=== PATIENT | male | born 1995 | race American Indian/Alaskan Native ===

== ENCOUNTER 2016-09-04 00:21 | Emergency (ER) | payer MEDICAID ==
[2016-09-04 00:29] VITALS: BP 116/67; PULSE 86; RESP 20; TEMP 100.4; O2SAT 96
--- NOTE | 2016-09-04 01:17 | C.PDOC ---
History Of Present Illness 21 year old male who presents to the ER with a complaint of fever and sore throat since yesterday, associated with vomiting that began today. Denies diarrhea, abdominal pain, or recent travel. Time Seen by Provider: 09/04/16 00:48 Chief Complaint (Nursing): Fever History Per: Patient History/Exam Limitations: no limitations Onset/Duration Of Symptoms: Days Current Symptoms Are (Timing): Still Present Location Of Pain: Throat Sick Contacts (Context): None Associated Symptoms: Fever, Sore Throat, Vomiting. denies: Diarrhea Ear Symptoms: Bilateral: None Recent travel outside of the [place]: No Past Medical History Reviewed: Historical Data, Nursing Documentation, Vital Signs Vital Signs: Last Vital Signs Temp 100.4 F H 09/04/16 00:26 Pulse 86 09/04/16 00:26 Resp 20 09/04/16 00:26 BP 116/67 09/04/16 00:26 Pulse Ox 96 09/04/16 02:01 - Medical History PMH: No Chronic Diseases Surgical History: No Surg Hx Family History: States: Unknown Family Hx - Social History Hx Alcohol Use: No Hx Substance Use: No - Immunization History Hx Tetanus Toxoid Vaccination: No Hx Influenza Vaccination: Yes Hx Pneumococcal Vaccination: No Review Of Systems Constitutional: Positive for: Fever ENT: Positive for: Throat Pain Gastrointestinal: Positive for: Vomiting. Negative for: Abdominal Pain, Diarrhea Physical Exam - Physical Exam Appears: Non-toxic Skin: Normal Color, Warm, Dry Head: Atraumatic, Normacephalic Eye(s): bilateral: Normal Inspection, PERRL, EOMI Ear(s): Bilateral: Normal Oral Mucosa: Moist Throat: Erythema (+), Exudate (+) Neck: Normal, Supple Chest: Symmetrical, No Tenderness Cardiovascular: Rhythm Regular, No Murmur Respiratory: Normal Breath Sounds, No Rales, No Rhonchi, No Wheezing Gastrointestinal/Abdominal: Soft, No Tenderness, No Organomegaly, No Guarding, No Rebound Extremity: Normal ROM Neurological/Psych: Oriented x3, Normal Speech, Normal Cognition, Normal Motor Gait: Steady ED Course And Treatment O2 Sat by Pulse Oximetry: 96 (Room air) Pulse Ox Interpretation: Normal Medical Decision Making Medical Decision Making: Plan: * Amoxicillin * Motrin On reevaluation, patient feels his symptoms have improved. Will discharge with Rx and instructions to follow up with PMD. Disposition - Disposition Referrals: [facility] [Outside] Disposition: HOME/ ROUTINE Disposition Time: 01:14 Condition: GOOD Additional Instructions: Follow up with the medical doctor within 1-2 days. Return if worsened. Prescriptions: Amoxicillin 500 mg PO BID #14 tablet Ibuprofen [Motrin] 600 mg PO TID #21 tab Instructions: Pharyngitis (ED) Forms: [employer] ([place]) - Clinical Impression Clinical Impression: Pharyngitis - Scribe Statement The provider has reviewed the documentation as recorded by the Scribeduarda Taylor All medical record entries made by the Marycarmenibeduarda were at my direction and personally dictated by me. I have reviewed the chart and agree that the record accurately reflects my personal performance of the history, physical exam, medical decision making, and the department course for this patient. I have also personally directed, reviewed, and agree with the discharge instructions and disposition.
== END 2016-09-04 01:21 | disposition home or self-care (01) ==
LOC: C.ER 00:21
DX: J02.9 Acute pharyngitis, unspecified (principal)